=== PATIENT | male | born 1960 | race Caucasian/White ===

== ENCOUNTER → 2017-06-06 08:36 | Outpatient (CLI) | payer BC | END | disposition home or self-care (01) | LOC: D.US 08:36 | DX: M79.604 Pain in right leg (principal); R60.0 Localized edema ==

== ENCOUNTER → 2019-02-16 12:42 | Outpatient (CLI) | payer BC | END | disposition home or self-care (01) | LOC: D.US 12:42 | PROVIDERS: ATTEND Family Medicine | DX: R60.9 Edema, unspecified (principal) ==